=== PATIENT | male | born 1945 | race Two or more races ===

== ENCOUNTER 2017-05-25 15:47 | Emergency (ER) | payer OTHER ==
[~2017-05-25] VITALS: Ht 170.2 cm; Wt 74.8 kg
--- NOTE | 2017-05-25 15:47 | NUR ---
[id number] FROM HOME: S/P FELL OFF 1 FOOT LADDER, STATES LEFT SHOULDER PAIN. NAD NOTED. PT AAO X2, DOES NOT RECALL CURRENT INCIDENT. VSS. PENDING MD JIMENEZ.
[2017-05-25 15:50] VITALS: BP 156/91
[2017-05-25 16:26] LABS: BASOPHILS % (AUTO) 0.3 % (0.0-2.0); EOSINOPHILS # (AUTO) 0.1 /CMM (0.0-0.7); EOSINOPHILS % (AUTO) 0.7 % (0.0-6.0); HEMATOCRIT 35 % (39-51); HEMOGLOBIN 12.2 g/dL (13.5-17.5); LYMPHOCYTES # (AUTO) 2.2 /CMM (0.8-4.8); LYMPHOCYTES % (AUTO) 23.7 % (20.0-44.0); MEAN CORPUSCULAR HEMOGLOBIN 33 PG (26.0-33.0); MEAN CORPUSCULAR HGB CONC 35 g/dl (31.0-36.0); MEAN CORPUSCULAR VOLUME 95 fL (80-96); MONOCYTES # (AUTO) 0.8 /CMM (0.1-1.30); MONOCYTES % (AUTO) 8.5 % (2.0-12.0); NEUTROPHILS # (AUTO) 6.3 /CMM (1.8-8.9); NEUTROPHILS % (AUTO) 66.8 % (43.0-81.0); PLATELET COUNT (AUTO) 149 /CMM (150-450); RDW COEFFICIENT OF VARIATION 12.2 (11.5-15.0); RED BLOOD CELL COUNT(AUTO) 3.66 MIL/uL (4.5-6.0); WHITE BLOOD COUNT (AUTO) 9.4 K/uL (4.3-11.0)
[2017-05-25 16:37] LABS: CALCIUM, SERUM 9.2 mg/dL (8.5-10.1); CARBON DIOXIDE 23 mmol/L (21-32); CHLORIDE 103 mmol/L (98-107); CREATININE 2.2 mg/dL (0.6-1.3); GLUCOSE 149 mg/dL (74-106); POTASSIUM 4.3 mmol/L (3.5-5.1); SODIUM SERUM 137 mmol/L (136-145); UREA NITROGEN, BLOOD 33 mg/dL (7-18)
[2017-05-25 16:40] LABS: INR 0.98 (0.85-1.15)
[2017-05-25 16:43] LABS: ALANINE AMINOTRANSFERASE 30 U/L (12-78); ALBUMIN 3.7 g/dL (3.4-5.0); ALKALINE PHOSPHATASE 71 U/L (46-116); ASPARTATE AMINOTRANSFERASE 30 U/L (15-37); BILIRUBIN,DIRECT 0.1 mg/dL (0.0-0.2); BILIRUBIN,TOTAL 0.3 mg/dL (0.2-1.0); TOTAL PROTEIN, SERUM 7.6 g/dL (6.4-8.2)
[2017-05-25 16:45] LABS: TROPONIN I < 0.017 ng/mL (0.00-0.056)
--- NOTE | 2017-05-25 17:46 | NUR ---
CALLED [facility], SPOKE WITH DEBURRER MACHINE, CASE WAS ASSIGNED TO A [facility] PHYSICIAN, WAITING FOR A CALL BACK
--- NOTE | 2017-05-25 18:29 | NUR ---
PATIENT ACCEPTED TO [facility] ER BY DR RODRIGUEZ RN TO RN REPORT CAN BE GIVEN TO [facility] ETA [id number]
--- NOTE | 2017-05-25 18:54 | NUR ---
ATTEMPTED TO CALL [place] FOR REPORT. NO PICKUP AT THIS TIME.
--- NOTE | 2017-05-25 18:55 | NUR ---
REPORT GIVEN TO [facility]. ALL FORMS GIVEN.
== END 2017-05-25 19:07 | disposition short-term general hospital (02) ==
LOC: ER 15:50
DX: S06.9X9A Unspecified intracranial injury with loss of consciousness of unspecified duration, initial encounter (principal); I12.9 Hypertensive chronic kidney disease with stage 1 through stage 4 chronic kidney disease, or unspecified chronic kidney disease; N18.9 Chronic kidney disease, unspecified; I70.0 Atherosclerosis of aorta; R51 Headache; W10.9XXA Fall (on) (from) unspecified stairs and steps, initial encounter; W11.XXXA Fall on and from ladder, initial encounter; Y93.89 Activity, other specified; Y92.89 Other specified places as the place of occurrence of the external cause; Y99.8 Other external cause status
CPT/HCPCS: 36415; 70450-TC; 71045-TC; 80048-TC; 80076-TC; 84484-TC; 85025-TC; 85730-TC; A4606; A6402; Z7610